=== PATIENT | female | born 1975 | race Caucasian/White ===

== ENCOUNTER 2017-05-09 15:59 | Emergency (ER) | payer SELFPAY ==
--- NOTE | 2017-05-09 16:25 | ED ORDER SUMMARY ---
..... Patient: SAEED CAIN OrderSheet [facility] VisitID: [id number] [place] [address] 42y, F Registration Date/Time: 05/09/2017 ORDER SHEET Weight: 77.1 kg (stated) Allergies: None GENERAL ORDERS: Knee Immobilizer (16:19 05/09/2017 EKjosephinelegustavo P.A.-C) (16:36 PWeiler ER Tech1) Crutches (16:25 05/09/2017 EKoroleva P.A.-C) (16:36 PWeiler ER Tech1) MEDICATION ORDERS: Hydrocodone-APAP PO 5/325 mg (NOW, HIGH ALERT MEDICATION) (16:18 05/09/2017 Zay P.A.-C) (Ack 16:23 KPaSly R.N.) (16:26 KPaSly R.N.) IV FLUIDS: ORDER SHEET NOTES: [Electronically signed by Criselda Perry-Karen (17:34 05/09/2017)] [Electronically signed by Abigail Grant R.N. (07:23 05/11/2017)] [Electronically locked/signed by Abigail Grant R.N. (07:23 05/11/2017)]
--- NOTE | 2017-05-09 16:25 | ED NURSING NOTES ---
Clinical Report - Nurses [facility] [address] [place] [address] 05/09/2017 16:00 Patient: SAEED CAIN TRIAGE Triage time 16:May 09 2017. Acuity: LEVEL 4. Chief Complaint: RIGHT LOWER EXTREMITY PAIN and SWELLING. Location of symptoms- (pt reports right knee pain that began to swell last night with increase in pain today, unknown trauma, "I did have a few drinks last night but I remember everything"). Alert. No acute distress. SEPSIS SCREEN: Sepsis Screen. Negative (no infection suspected/documented). KENNEY COMA SCORE: Kenney Coma Scale: 15- eyes open spontaneously (4); best verbal response- oriented x 4 (5); best motor response- obeys commands (6). --16:09 Abigail Grant R.N. 16:04 05/09/17. BP: 122/54. HR: 82. RR: 17. O2 saturation: 98%. Temp: 98.4 F. Pain level now: 06/14. --16:09 Abigail Grant R.N. Weight: 77.1 kg stated. Height/Length: 70 inches Per Patient. BMI: 24.4. --16:05 Abigail Grant R.N. Medications None. --16:05 Abigail Grant R.N. Allergies None. --16:05 Abigail Grant R.N. Medication/allergy information source: the patient. --16:09 Abigail Grant R.N. History Arrived by private vehicle. Historian: patient. Accompanied by family and father. An injury may have occurred. This occurred yesterday. Provoking / relieving factors: worsened by movement, standing and walking; relieved by sitting. She has had swelling and trouble walking. 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 PAST MEDICAL HX: Tetanus status: up-to-date. Immunizations: up-to-date. Last normal menstrual period- 1 days ago. SOCIAL HX: Smoker- current status unknown (cigarette). Occasional alcohol use. No drug use. No infectious disease exposure. ABUSE ASSESSMENT: No report of abuse. SELF HARM ASSESSMENT: A self harm assessment was performed. The patient answered "no" to the question "Do you have thoughts of harming or killing yourself?". FALL RISK ASSESSMENT: Fall risk assessment completed. No fall risk identified. NUTRITIONAL RISK ASSESSMENT: The nutritional risk assessment revealed no deficiencies. FUNCTIONAL ASSESSMENT: Functional assessment: no impairments noted. LEARNING NEEDS ASSESSMENT: The learning needs assessment revealed no barriers. SKIN INTEGRITY ASSESSMENT: Skin integrity risk assessment completed. No skin integrity risk identified. --16:09 Abigail Grant R.N. PROBLEMS: no known problems. ADDITIONAL SURGERIES: Lumpectomy of breast. --16:06 Abigail Grant R.N. Interventions ID band on patient. To treatment room. --16:09 Abigail Grant R.N. PHYSICAL ASSESSMENT Ambulatory to room. GENERAL / NEURO / PSYCH: Oriented X 4. Alert. Appears in no acute distress. Appears in pain. EXTREMITIES: Limited ROM present. Extremity pulses are within normal limits. Neuro-vascular status intact to the extremity. Normal gait. Right knee: tenderness and swelling. Limited ROM secondary to pain (diminished flexion and extension). SKIN: Skin intact. Skin is warm and dry. --16:10 Abigail Grant R.N. NURSING PROGRESS NOTES Oxygen administered. Extremity elevated. Reassurance given. Patient identifiers checked. Call light placed in reach. Side rails up x 1. Bed placed in lowest position. Brakes of bed on. --16:10 Abigail Grant R.N. 16:26 05/09/2017 Hydrocodone-APAP (Hydrocodone-Acetaminophen) PO 5/325 mg Tablets 1 tab given. Allergies verified, confirmed 5 rights and sedative warning given to the patient and patient's family. --16:26 Abigail Grant R.N. Immobilizer applied to right knee by nurse; distal pulses intact, sensation intact and motor function within normal limits. Patient fit with new crutches. Crutch training performed by tech; the patient demonstrated proper use. --16:38 Michael Hawkins, ANURADHA Tech1. DISPOSITION / DISCHARGE No learning barriers present. Discharge instructions provided and reviewed with the patient. Reviewed medication(s) side effects, precautions and course information. Prescription(s) given to the patient. Patient verbalized understanding. Written instructions provided in Ivorian. The patient was discharged by the physician. She was discharged home and accompanied by parent. She left the Emergency Department ambulatory and via private vehicle. Parent driving. ( pt per PA has placed a knee immobilizer to right knee and crutches. consumer loan specialist instructing pt on crutch use, pt return demonstrated). --16:32 Abigail Grant R.N. 16:28 05/09/17. BP: deferred. HR: deferred. RR: deferred. O2 saturation: deferred. Temp: deferred. Pain level now deferred. --16:32 Abigail Grant R.N. Locked/Released at 05/11/2017 7:23 by Abigail Grant R.N.
--- NOTE | 2017-05-09 16:25 | ED CLINICAL REPORT ---
Clinical Report - Physicians/Mid Levels [facility] [address] [place] [address] 05/09/2017 16:00 [id number] Time Seen: 16:29 May 09 2017. Arrived- By private vehicle. Historian- patient. HISTORY OF PRESENT ILLNESS Chief Complaint: Injury to right knee. The injury happened yesterday. Occurred at home. The patient sustained a twisting injury. (patient recalls doing some twisting mechanism yesterday, and having some pain yesterday, worsening of pain today. Pain worsens with exacerbation.). REVIEW OF SYSTEMS The patient complains of pain on weight bearing. All systems otherwise negative, except as recorded above. PAST HISTORY The patient has not had a prior injury to the same area. SOCIAL HISTORY Current every day smoker. Alcohol use. No drug use. ADDITIONAL NOTES The nursing notes have been reviewed. PHYSICAL EXAM Vital Signs: 05/09/2017 16:04 BP: 122/54. HR: 82. RR: 17. O2 saturation: 98%. Temp: 98.4 F. Pain level now: 8/10. Appearance: Alert. No acute distress. Head: Head atraumatic. ENT: Ears normal. Nose normal. Neck: Normal inspection. No decreased ROM in the neck. No carotid bruit. CVS: Normal heart rate and rhythm. Heart sounds normal. Respiratory: No respiratory distress. Breath sounds normal. Abdomen: No visible injury. Soft. Skin: Normal skin color. Extremities: Right hip. No tenderness or swelling. Right thigh. No tenderness or laceration. Right knee: tenderness and swelling located in the medial joint line. Right leg. No tenderness or swelling. Gait: Limping gait. Neuro, Vascular and Tendons: Vascular status intact. Motor intact. Neuro: Oriented X 3. No motor deficit. PROGRESS AND PROCEDURES PROCEDURES (crutches, right knee immobolizer). Course of Care: patient with no signs of injury, and minimal swelling on the medial aspect. No known trauma. Patient to follow up outpatient. NO h/o dvt. Exacerbated by movement. Splint applied, pt ot f/u outpatient in the future. NO signs of infectious process. Pt able to ambulate however with pain . Pain reproduced by palpation/ movement. Patient is stable. Physical exam findings are improved. Symptoms better. Patient/family counseled. Disposition: Discharged. Condition: good. CLINICAL IMPRESSION Sprain of the medial collateral ligament of the right knee. INSTRUCTIONS Apply ice. Wear knee immobilizer. Elevate affected areas above chest level. Prescription Medications: Ibuprofen 800 mg tablets: take 1 tablet orally every 8 hours for 3 days, as needed for pain. Dispense ten (10). No refill. Ultram 50 mg: take 1 orally every 8 hours for 3 days, as needed for pain. Dispense ten (10). No refills. Substitution is permissible. Follow-up: Follow up with a specialist in five days. [facility] [address] [facility] [address] Follow up. Call for the next available appointment. (Electronically signed by Criselda Perry P.A.-C 05/09/2017 17:34)
--- NOTE | 2017-05-09 16:25 | ED NURSING NOTES ---
Clinical Report - Nurses [facility] [address] [place] [address] 05/09/2017 16:00 Patient: SAEED CAIN TRIAGE Triage time 16:May 09 2017. Acuity: LEVEL 4. Chief Complaint: RIGHT LOWER EXTREMITY PAIN and SWELLING. Location of symptoms- (pt reports right knee pain that began to swell last night with increase in pain today, unknown trauma, "I did have a few drinks last night but I remember everything"). Alert. No acute distress. SEPSIS SCREEN: Sepsis Screen. Negative (no infection suspected/documented). KENNEY COMA SCORE: Kenney Coma Scale: 15- eyes open spontaneously (4); best verbal response- oriented x 4 (5); best motor response- obeys commands (6). --16:09 Abigail Grant R.N. 16:04 05/09/17. BP: 122/54. HR: 82. RR: 17. O2 saturation: 98%. Temp: 98.4 F. Pain level now: 06/14. --16:09 Abigail Grant R.N. Weight: 77.1 kg stated. Height/Length: 70 inches Per Patient. BMI: 24.4. --16:05 Abigail Garnt R.N. Medications None. --16:05 Abigail Grant R.N. Allergies None. --16:05 Abigail Grant R.N. Medication/allergy information source: the patient. --16:09 Abigail Grant R.N. History Arrived by private vehicle. Historian: patient. Accompanied by family and father. An injury may have occurred. This occurred yesterday. Provoking / relieving factors: worsened by movement, standing and walking; relieved by sitting. She has had swelling and trouble walking. 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 PAST MEDICAL HX: Tetanus status: up-to-date. Immunizations: up-to-date. Last normal menstrual period- 1 days ago. SOCIAL HX: Smoker- current status unknown (cigarette). Occasional alcohol use. No drug use. No infectious disease exposure. ABUSE ASSESSMENT: No report of abuse. SELF HARM ASSESSMENT: A self harm assessment was performed. The patient answered "no" to the question "Do you have thoughts of harming or killing yourself?". FALL RISK ASSESSMENT: Fall risk assessment completed. No fall risk identified. NUTRITIONAL RISK ASSESSMENT: The nutritional risk assessment revealed no deficiencies. FUNCTIONAL ASSESSMENT: Functional assessment: no impairments noted. LEARNING NEEDS ASSESSMENT: The learning needs assessment revealed no barriers. SKIN INTEGRITY ASSESSMENT: Skin integrity risk assessment completed. No skin integrity risk identified. --16:09 Abigail Grant R.N. PROBLEMS: no known problems. ADDITIONAL SURGERIES: Lumpectomy of breast. --16:06 Abigail Grant R.N. Interventions ID band on patient. To treatment room. --16:09 Abigail Grant R.N. PHYSICAL ASSESSMENT Ambulatory to room. GENERAL / NEURO / PSYCH: Oriented X 4. Alert. Appears in no acute distress. Appears in pain. EXTREMITIES: Limited ROM present. Extremity pulses are within normal limits. Neuro-vascular status intact to the extremity. Normal gait. Right knee: tenderness and swelling. Limited ROM secondary to pain (diminished flexion and extension). SKIN: Skin intact. Skin is warm and dry. --16:10 Abigail Grant R.N. NURSING PROGRESS NOTES Oxygen administered. Extremity elevated. Reassurance given. Patient identifiers checked. Call light placed in reach. Side rails up x 1. Bed placed in lowest position. Brakes of bed on. --16:10 Abigail Grant R.N. 16:26 05/09/2017 Hydrocodone-APAP (Hydrocodone-Acetaminophen) PO 5/325 mg Tablets 1 tab given. Allergies verified, confirmed 5 rights and sedative warning given to the patient and patient's family. --16:26 Abigail Grant R.N. Immobilizer applied to right knee by nurse; distal pulses intact, sensation intact and motor function within normal limits. Patient fit with new crutches. Crutch training performed by tech; the patient demonstrated proper use. --16:38 Michael Hawkins, ANURADHA Tech1. DISPOSITION / DISCHARGE No learning barriers present. Discharge instructions provided and reviewed with the patient. Reviewed medication(s) side effects, precautions and course information. Prescription(s) given to the patient. Patient verbalized understanding. Written instructions provided in Chilean. The patient was discharged by the physician. She was discharged home and accompanied by parent. She left the Emergency Department ambulatory and via private vehicle. Parent driving. ( pt per PA has placed a knee immobilizer to right knee and crutches. retail visual merchandiser instructing pt on crutch use, pt return demonstrated). --16:32 Abigail Grant R.N. 16:28 05/09/17. BP: deferred. HR: deferred. RR: deferred. O2 saturation: deferred. Temp: deferred. Pain level now deferred. --16:32 Abigail Grant R.N. Locked/Released at 05/11/2017 7:23 by Abigail Grant R.N.
--- NOTE | 2017-05-09 16:25 | ED ORDER SUMMARY ---
..... Patient: SAEED CAIN OrderSheet [facility] VisitID: [id number] [place] [address] 42y, F Registration Date/Time: 05/09/2017 ORDER SHEET Weight: 77.1 kg (stated) Allergies: None GENERAL ORDERS: Knee Immobilizer (16:19 05/09/2017 EKjosephinelegustavo P.A.-C) (16:36 PWeiler ER Tech1) Crutches (16:25 05/09/2017 EKoroleva P.A.-C) (16:36 PWeiler ER Tech1) MEDICATION ORDERS: Hydrocodone-APAP PO 5/325 mg (NOW, HIGH ALERT MEDICATION) (16:18 05/09/2017 Zay P.A.-C) (Ack 16:23 KPaSly R.N.) (16:26 KPaSly R.N.) IV FLUIDS: ORDER SHEET NOTES: [Electronically signed by Criselda Perry-Karen (17:34 05/09/2017)] [Electronically signed by Abigail Grant R.N. (07:23 05/11/2017)] [Electronically locked/signed by Abigail Grant R.N. (07:23 05/11/2017)]
--- NOTE | 2017-05-09 16:25 | ED CLINICAL REPORT ---
Clinical Report - Physicians/Mid Levels [facility] [address] [place] [address] 05/09/2017 16:00 [id number] Time Seen: 16:29 May 09 2017. Arrived- By private vehicle. Historian- patient. HISTORY OF PRESENT ILLNESS Chief Complaint: Injury to right knee. The injury happened yesterday. Occurred at home. The patient sustained a twisting injury. (patient recalls doing some twisting mechanism yesterday, and having some pain yesterday, worsening of pain today. Pain worsens with exacerbation.). REVIEW OF SYSTEMS The patient complains of pain on weight bearing. All systems otherwise negative, except as recorded above. PAST HISTORY The patient has not had a prior injury to the same area. SOCIAL HISTORY Current every day smoker. Alcohol use. No drug use. ADDITIONAL NOTES The nursing notes have been reviewed. PHYSICAL EXAM Vital Signs: 05/09/2017 16:04 BP: 122/54. HR: 82. RR: 17. O2 saturation: 98%. Temp: 98.4 F. Pain level now: 8/10. Appearance: Alert. No acute distress. Head: Head atraumatic. ENT: Ears normal. Nose normal. Neck: Normal inspection. No decreased ROM in the neck. No carotid bruit. CVS: Normal heart rate and rhythm. Heart sounds normal. Respiratory: No respiratory distress. Breath sounds normal. Abdomen: No visible injury. Soft. Skin: Normal skin color. Extremities: Right hip. No tenderness or swelling. Right thigh. No tenderness or laceration. Right knee: tenderness and swelling located in the medial joint line. Right leg. No tenderness or swelling. Gait: Limping gait. Neuro, Vascular and Tendons: Vascular status intact. Motor intact. Neuro: Oriented X 3. No motor deficit. PROGRESS AND PROCEDURES PROCEDURES (crutches, right knee immobolizer). Course of Care: patient with no signs of injury, and minimal swelling on the medial aspect. No known trauma. Patient to follow up outpatient. NO h/o dvt. Exacerbated by movement. Splint applied, pt ot f/u outpatient in the future. NO signs of infectious process. Pt able to ambulate however with pain . Pain reproduced by palpation/ movement. Patient is stable. Physical exam findings are improved. Symptoms better. Patient/family counseled. Disposition: Discharged. Condition: good. CLINICAL IMPRESSION Sprain of the medial collateral ligament of the right knee. INSTRUCTIONS Apply ice. Wear knee immobilizer. Elevate affected areas above chest level. Prescription Medications: Ibuprofen 800 mg tablets: take 1 tablet orally every 8 hours for 3 days, as needed for pain. Dispense ten (10). No refill. Ultram 50 mg: take 1 orally every 8 hours for 3 days, as needed for pain. Dispense ten (10). No refills. Substitution is permissible. Follow-up: Follow up with a specialist in five days. [facility] , [address] [facility] [address] Follow up. Call for the next available appointment. (Electronically signed by Criselda Perry P.A.-C 05/09/2017 17:34)
--- NOTE | 2017-05-11 07:23 | ED MED RECONCILIATION SUMMARY ---
Patient: SAEED CAIN Medication Reconciliation Report [facility] VisitID: [id number] [place] [address] 42y, F Registration Date/Time: 05/09/2017 Weight: 77.1 kg Height/Length: 70 in. BMI: 24.4 ALLERGIES: None The patient's Home Medications are listed below: NONE. The source(s) of the original Home Medication information: patient The following Medications were given to the patient in the Emergency Department: Hydrocodone-APAP [PO] PO 1 tab, administered: 05/09/2017 4:26:00 PM The following Medications were prescribed to the patient: Ibuprofen 800 mg tablets: take 1 tablet orally every 8 hours for 3 days, as needed for pain. Dispense ten (10). No refill. -- Criselda Perry, P.A.-C Ultram 50 mg: take 1 orally every 8 hours for 3 days, as needed for pain. Dispense ten (10). No refills. Substitution is permissible. -- Criselda Perry, P.A.-C
--- NOTE | 2017-05-11 07:23 | ED MAR SUMMARY ---
..... Medication Administration Record [facility] [address] [place] [address] Patient: SAEED CAIN Visit ID: [id number] 42y, F Weight: 77.1 kg Height/Length: 70 in BMI: 24.4 ALLERGIES: None Given 16:26 05/09/2017 Abigail Grant R.N. Medication Administered: HYDROCODONE-APAP [PO] (HYDROCODONE-ACETAMINOPHEN), Dose: 1 tab 5/325 mg Tablets PO. Medication Ordered: Hydrocodone-APAP PO 5/325 mg (NOW, HIGH ALERT MEDICATION).
--- NOTE | 2017-05-11 07:23 | ED MED RECONCILIATION SUMMARY ---
Patient: SAEED CAIN Medication Reconciliation Report [facility] VisitID: [id number] [place] [address] 42y, F Registration Date/Time: 05/09/2017 Weight: 77.1 kg Height/Length: 70 in. BMI: 24.4 ALLERGIES: None The patient's Home Medications are listed below: NONE. The source(s) of the original Home Medication information: patient The following Medications were given to the patient in the Emergency Department: Hydrocodone-APAP [PO] PO 1 tab, administered: 05/09/2017 4:26:00 PM The following Medications were prescribed to the patient: Ibuprofen 800 mg tablets: take 1 tablet orally every 8 hours for 3 days, as needed for pain. Dispense ten (10). No refill. -- Criselda Perry, P.A.-C Ultram 50 mg: take 1 orally every 8 hours for 3 days, as needed for pain. Dispense ten (10). No refills. Substitution is permissible. -- Criselda Perry, P.A.-C
--- NOTE | 2017-05-11 07:23 | ED MAR SUMMARY ---
..... Medication Administration Record [facility] [address] [place] [address] Patient: SAEED CAIN Visit ID: [id number] 42y, F Weight: 77.1 kg Height/Length: 70 in BMI: 24.4 ALLERGIES: None Given 16:26 05/09/2017 Abigail Grant R.N. Medication Administered: HYDROCODONE-APAP [PO] (HYDROCODONE-ACETAMINOPHEN), Dose: 1 tab 5/325 mg Tablets PO. Medication Ordered: Hydrocodone-APAP PO 5/325 mg (NOW, HIGH ALERT MEDICATION).
--- NOTE | 2017-05-11 07:23 | ED DISCHARGE INSTRUCTIONS ---
Patient: SAEED CAIN General Instructions [facility] VisitID: [id number] [address], [place], [place] [id number] 42y, F Registration Date/Time: 05/09/2017 Sprain of the medial collateral ligament of the right knee. INSTRUCTIONS Apply ice. Wear knee immobilizer. Elevate affected areas above chest level. Prescription Medications: Ibuprofen 800 mg tablets: take 1 tablet orally every 8 hours for 3 days, as needed for pain. Dispense ten (10). No refill. Ultram 50 mg: take 1 orally every 8 hours for 3 days, as needed for pain. Dispense ten (10). No refills. Substitution is permissible. Follow-up: Follow up with a specialist in five days. Follow-up with: [facility], , [address], , [place], [address] Follow up. Call for the next available appointment. ADDITIONAL INFORMATION Sprain, Knee A sprain is an injury to the ligaments or capsule that holds a joint together. There are no broken bones. Most sprains take three to six weeks to heal. If the ligament is completely torn (severe sprain), it can take months to recover from. Most knee sprains are treated with a splint, knee immobilizer or elastic wrap for support. Severe sprains may require surgery. Home care The following guidelines will help you care for your injury at home: Stay off the injured leg as much as possible until you can walk on it without pain. If you have a lot of pain with walking, crutches or a walker may be prescribed. (These can be rented or purchased at many pharmacies and surgical or orthopedic supply stores). Follow your doctor's advice regarding when to begin bearing weight on that leg. Keep your leg elevated to reduce pain and swelling. When sleeping, place a pillow under the injured leg. When sitting, support the injured leg so it is level with your waist. This is very important during the first 48 hours. Apply an ice pack (ice cubes in a plastic bag, wrapped in a towel) over the injured area for 20 minutes every 12 hours the first day. You can place the ice pack directly over the splint. If a Velcro knee immobilizer was applied, you can open this to apply the ice pack directly to the knee. Continue with ice packs 34 times a day for the next two days, then as needed for the relief of pain and swelling. You may use acetaminophen or ibuprofen to control pain, unless another pain medicine was prescribed. If you have chronic liver or kidney disease or ever had a stomach ulcer or GI bleeding, talk with your doctor before using these medicines. If you were given a splint, keep it completely dry at all times. Bathe with your splint out of the water, protected with a large plastic bag, rubber-banded at the top end. If a fiberglass splint gets wet, you can dry it with a hair-dryer. If you have a Velcro knee immobilizer, you can remove this to bathe, unless told otherwise. Follow-up care Follow up with your doctor as advised. Any X-rays you had today dont show any broken bones, breaks, or fractures. Sometimes fractures dont show up on the first X-ray. Bruises and sprains can sometimes hurt as much as a fracture. These injuries can take time to heal completely. If your symptoms dont improve or they get worse, talk with your doctor. You may need a repeat X-ray. When to seek medical care Get prompt medical attention if any of the following occur: The plaster cast or splint becomes wet or soft The fiberglass cast or splint remains wet for more than 24 hours Pain or swelling increases Toes become cold, blue, numb or tingly Knee Immobilizer A KNEE IMMOBILIZER is used to provide support and limit movement of the knee. This will make you more comfortable as your injury heals. Home Use: 1) Unless told otherwise, the knee brace should be worn whenever you are out of bed. You may wear it in bed while asleep for the first few nights or until the pain starts to go away. Otherwise, remove the brace at night to avoid muscle stiffness from lack of joint movement. 2) You can open the velcro brace to dress, bathe and apply ice packs as directed. Get Prompt Medical Attention if any of the following occur: -- Worsening pain in the knee -- Weakness or numbness or tingling in the foot -- Increased swelling, redness or warmth of the knee joint You have been given the following additional information: Knee Sprain Knee Immobilizer (Electronically signed by Criselda Perry P.A.-C 05/09/2017 17:34)
--- NOTE | 2017-05-11 07:23 | ED DISCHARGE INSTRUCTIONS ---
Patient: SAEED CAIN General Instructions [facility] VisitID: [id number] [address], [place], [place] [id number] 42y, F Registration Date/Time: 05/09/2017 Sprain of the medial collateral ligament of the right knee. INSTRUCTIONS Apply ice. Wear knee immobilizer. Elevate affected areas above chest level. Prescription Medications: Ibuprofen 800 mg tablets: take 1 tablet orally every 8 hours for 3 days, as needed for pain. Dispense ten (10). No refill. Ultram 50 mg: take 1 orally every 8 hours for 3 days, as needed for pain. Dispense ten (10). No refills. Substitution is permissible. Follow-up: Follow up with a specialist in five days. Follow-up with: [facility], , [address], , [place], [id number] Follow up. Call for the next available appointment. ADDITIONAL INFORMATION Sprain, Knee A sprain is an injury to the ligaments or capsule that holds a joint together. There are no broken bones. Most sprains take three to six weeks to heal. If the ligament is completely torn (severe sprain), it can take months to recover from. Most knee sprains are treated with a splint, knee immobilizer or elastic wrap for support. Severe sprains may require surgery. Home care The following guidelines will help you care for your injury at home: Stay off the injured leg as much as possible until you can walk on it without pain. If you have a lot of pain with walking, crutches or a walker may be prescribed. (These can be rented or purchased at many pharmacies and surgical or orthopedic supply stores). Follow your doctor's advice regarding when to begin bearing weight on that leg. Keep your leg elevated to reduce pain and swelling. When sleeping, place a pillow under the injured leg. When sitting, support the injured leg so it is level with your waist. This is very important during the first 48 hours. Apply an ice pack (ice cubes in a plastic bag, wrapped in a towel) over the injured area for 20 minutes every 12 hours the first day. You can place the ice pack directly over the splint. If a Velcro knee immobilizer was applied, you can open this to apply the ice pack directly to the knee. Continue with ice packs 34 times a day for the next two days, then as needed for the relief of pain and swelling. You may use acetaminophen or ibuprofen to control pain, unless another pain medicine was prescribed. If you have chronic liver or kidney disease or ever had a stomach ulcer or GI bleeding, talk with your doctor before using these medicines. If you were given a splint, keep it completely dry at all times. Bathe with your splint out of the water, protected with a large plastic bag, rubber-banded at the top end. If a fiberglass splint gets wet, you can dry it with a hair-dryer. If you have a Velcro knee immobilizer, you can remove this to bathe, unless told otherwise. Follow-up care Follow up with your doctor as advised. Any X-rays you had today dont show any broken bones, breaks, or fractures. Sometimes fractures dont show up on the first X-ray. Bruises and sprains can sometimes hurt as much as a fracture. These injuries can take time to heal completely. If your symptoms dont improve or they get worse, talk with your doctor. You may need a repeat X-ray. When to seek medical care Get prompt medical attention if any of the following occur: The plaster cast or splint becomes wet or soft The fiberglass cast or splint remains wet for more than 24 hours Pain or swelling increases Toes become cold, blue, numb or tingly Knee Immobilizer A KNEE IMMOBILIZER is used to provide support and limit movement of the knee. This will make you more comfortable as your injury heals. Home Use: 1) Unless told otherwise, the knee brace should be worn whenever you are out of bed. You may wear it in bed while asleep for the first few nights or until the pain starts to go away. Otherwise, remove the brace at night to avoid muscle stiffness from lack of joint movement. 2) You can open the velcro brace to dress, bathe and apply ice packs as directed. Get Prompt Medical Attention if any of the following occur: -- Worsening pain in the knee -- Weakness or numbness or tingling in the foot -- Increased swelling, redness or warmth of the knee joint You have been given the following additional information: Knee Sprain Knee Immobilizer (Electronically signed by Criselda Perry P.A.-C 05/09/2017 17:34)
== END 2017-05-09 16:37 | disposition home or self-care (01) ==
LOC: ED SRH 15:59
DX: S83.411A Sprain of medial collateral ligament of right knee, initial encounter (principal); X50.1XXA Overexertion from prolonged static or awkward postures, initial encounter; Y93.9 Activity, unspecified; Y92.9 Unspecified place or not applicable; Y99.9 Unspecified external cause status; F17.210 Nicotine dependence, cigarettes, uncomplicated